=== PATIENT | male | born 1965 | race Caucasian/White ===

== ENCOUNTER 2016-12-13 06:54 | Emergency (ER) | payer OTHER ==
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
--- NOTE | 2016-12-13 15:27 | ED MED RECONCILIATION SUMMARY ---
Patient: MIKE FUCHS Medication Reconciliation Report [facility] VisitID: [id number] [address] [place] [address] 51y, M Registration Date/Time: 12/13/2016 Weight: 102.0 kg Height/Length: 69 in. BMI: 33.2 ALLERGIES: No Known Drug Allergy The patient's Home Medications are listed below: THE FOLLOWING MEDICATIONS NEED TO BE RECONCILED: Lisinopril Oral NovoLIN R Injection Simvastatin Oral Tamsulosin HCl Oral The source(s) of the original Home Medication information: Not obtained. The following Medications were given to the patient in the Emergency Department: None. The following Medications were prescribed to the patient: Acetaminophen (available over the counter): take according to label instructions. -- Darnell Escobar DO Ibuprofen 600mg tablets: take 1 tablet orally every 8 hours as needed for pain. Dispense thirty (30). No refills. -- Darnell Escobar DO
--- NOTE | 2016-12-13 15:27 | ED MAR SUMMARY ---
..... Medication Administration Record [facility] [address] [place], [place] [id number] Patient: MIKE FUCHS Visit ID: [id number] 51y, M Weight: 102.0 kg Height/Length: 69 in BMI: 33.2 ALLERGIES: No Known Drug Allergy
--- NOTE | 2016-12-13 15:27 | ED MAR SUMMARY ---
..... Medication Administration Record [facility] [address] [place], [place] [id number] Patient: MIKE FUCHS Visit ID: [id number] 51y, M Weight: 102.0 kg Height/Length: 69 in BMI: 33.2 ALLERGIES: No Known Drug Allergy
--- NOTE | 2016-12-13 15:27 | ED MED RECONCILIATION SUMMARY ---
Patient: MIKE FUCHS Medication Reconciliation Report [facility] VisitID: [id number] [address] [place] [address] 51y, M Registration Date/Time: 12/13/2016 Weight: 102.0 kg Height/Length: 69 in. BMI: 33.2 ALLERGIES: No Known Drug Allergy The patient's Home Medications are listed below: THE FOLLOWING MEDICATIONS NEED TO BE RECONCILED: Lisinopril Oral NovoLIN R Injection Simvastatin Oral Tamsulosin HCl Oral The source(s) of the original Home Medication information: Not obtained. The following Medications were given to the patient in the Emergency Department: None. The following Medications were prescribed to the patient: Acetaminophen (available over the counter): take according to label instructions. -- Darnell Escobar DO Ibuprofen 600mg tablets: take 1 tablet orally every 8 hours as needed for pain. Dispense thirty (30). No refills. -- Darnell Escobar DO
== END 2016-12-13 08:30 | disposition home or self-care (01) ==
LOC: ED SRH 06:54
DX: S20.212A Contusion of left front wall of thorax, initial encounter (principal); E10.641 Type 1 diabetes mellitus with hypoglycemia with coma; V47.5XXA Car driver injured in collision with fixed or stationary object in traffic accident, initial encounter; Y93.9 Activity, unspecified; Y92.9 Unspecified place or not applicable; Y99.9 Unspecified external cause status